=== PATIENT | female | born 1975 | race Caucasian/White ===

== ENCOUNTER 2018-02-02 07:54 | Day surgery (SDC) | payer OTHER ==
[~2018-02-02 07:54] MED LIST: Acetaminophen 500 MG Tab PO ONE; Bupivacaine 0.5%/EPINEPHrine 1:200,000 50 ML MDV ONE; Dexamethasone 4 MG/ML SDV ONE; Glycopyrrolate 0.2 MG/ML 5 ML MDV ONE; Meropenem 500 MG SDV ONE; Neostigmine Methylsulfate 1 MG/ML 5 ML Syringe ONE; Ondansetron 4 MG/2 ML SDV ONE; Propofol 200 MG/20 ML SDV ONE; Rocuronium 50 MG/5 ML Vial ONE; Scopolamine 1.5 MG Transdermal Patch TOP SCH; Succinylcholine 200 MG/10 ML MDV ONE; cefOXitin 2 GM in Sodium Chloride 0.9% 50 ML IV ONE; fentaNYL 250 MCG/5 ML SDV ONE
[2018-02-02] MEDS: Dextrose 5%-Lactated Ringers 1,000 ML IV SCH (08:30)
[2018-02-02] MEDS ORDERED: Naloxone 0.4 MG/ML SDV IVPUSH PRN (08:32)
[2018-02-02] MEDS ORDERED: HYDROmorphone/Normal Saline 15 MG/30 ML PCA IV PRN (08:32)
[2018-02-02] MEDS ORDERED: Naloxone 0.4 MG/ML SDV IV PRN (08:34)
[2018-02-02] MEDS ORDERED: Ketamine 500 MG/5 ML MDV IV SCH (08:45)
[2018-02-02] MEDS ORDERED: Ropivacaine 30 ML, Dexamethasone 8 MG, EPINEPHrine 0.4 MG, Sodium Chloride 0.9% 47.6 ML NERVRT SCH ×4 (08:45)
[2018-02-02] MEDS ORDERED: MVI, Adult with Vitamin K 10 ML, Chromium/Copper/Mang/Selen/Zn 1 ML in Dextrose 5%-Lact... IV ONE ×3 (12:00)
[2018-02-02] MEDS ORDERED: hydrOXYzine HCl 25 MG Tab PO PRN (12:38)
[2018-02-02] MEDS ORDERED: traZODone 50 MG Tab PO PRN (12:38)
[2018-02-02] MEDS ORDERED: Ondansetron 4 MG/2 ML SDV IVPUSH PRN (13:00)
[2018-02-02] MEDS ORDERED: Zinc Sulfate 220 MG Cap PO SCH (16:00)
[2018-02-02] MEDS ORDERED: Pantoprazole 40 MG Vial IVPUSH SCH (16:00)
[2018-02-02] MEDS: cefOXitin 2 GM in Sodium Chloride 0.9% 50 ML IV SCH ×2 (16:18→21:36)
[2018-02-02] MEDS: Vitamin A 10,000 Unit Cap PO ONE ×2 (16:21→16:34)
[2018-02-02] MEDS: ZINC GLUCONATE 50 MG PO SCH (16:23)
[2018-02-02] MEDS: Amylase/Lipase/Protease 12,000 Unit Cap.CR PO SCH ×3 (16:23→16:54)
[2018-02-02] MEDS: Gabapentin 300 MG Cap PO SCH ×2 (16:53→21:32)
[2018-02-02] MEDS: Nicotine 14 MG/24 Hr Patch TRDERM SCH (16:53)
[2018-02-02] MEDS: Acetaminophen/HYDROcodone 325-5 MG Tab PO PRN (18:37)
[2018-02-02] MEDS ORDERED: OXcarbazepine 300 MG Tab PO SCH (21:00)
[2018-02-02] MEDS ORDERED: risperiDONE 1 MG Tab PO SCH (21:00)
[2018-02-03] MEDS: Acetaminophen/HYDROcodone 325-5 MG Tab PO PRN ×3 (00:05→09:53)
[2018-02-03] MEDS: Dextrose 5%-Lactated Ringers 1,000 ML IV SCH (00:08)
[2018-02-03] MEDS: cefOXitin 2 GM in Sodium Chloride 0.9% 50 ML IV SCH ×2 (03:05→09:38)
[2018-02-03] MEDS: Amylase/Lipase/Protease 12,000 Unit Cap.CR PO SCH ×2 (07:54→11:09)
[2018-02-03 07:56] VITALS: BP 92/58
[2018-02-03] MEDS: Nicotine 14 MG/24 Hr Patch TRDERM SCH (08:13)
[2018-02-03] MEDS: Gabapentin 300 MG Cap PO SCH (08:15)
[2018-02-03] MEDS: ZINC GLUCONATE 50 MG PO SCH (08:16)
[2018-02-03] MEDS ORDERED: Vilazodone 20 MG Tab PO SCH (09:00)
[2018-02-03] MEDS ORDERED: Vitamin A 100,000 Units/2 ML SDV IM ONE ×2 (10:00)
--- NOTE | 2018-02-09 13:09 | DISCH ---
FINAL DIAGNOSES: 1. Biliary dyskinesia. 2. Sanguineous small bowel distorted by adhesions. 3. Cystic peritoneal nodule adjacent to gallbladder. 4. Status post duodenal switch. 5. Vitamin A deficiency. 6. Zinc deficiency. OPERATIVE PROCEDURES: Done on 02/02/2018: 1. Diagnostic laparoscopy with lysis of adhesions and. a. Cholecystectomy. b. Repair of area of partial deserosalization of small bowel. c. Removal of cystic peritoneal nodule adjacent to the gallbladder. HOSPITAL COURSE: This is a 42-year-old status post duodenal switch presenting with ongoing postprandial abdominal pain. Workup included a HIDA scan with CCK injection causing quite precise reproduction of the patient's symptoms. The patient underwent a laparoscopic cholecystectomy on 02/02/2018. She was also noted to have an adhesion distorting a segment of her small bowel. This was taken down and was somewhat deserosalized after the lysis of adhesions and was repaired with a laterally placed staple line. There is a small cystic peritoneal nodule adjacent to the gallbladder which was taken out as well for diagnostic purposes. The patient was noted to have a quite low vitamin A level at 15.9 mcg/dL. The lower limit of normal being 32. Her zinc level was also somewhat low at 0.62 mcg/mL with lower limit of normal being 0.66 mcg/dL. Vitamin A deficiency is potentially a serious problems and the patient was given 100,000 units of vitamin A yesterday along with some Creon 100,000 units of vitamin A IM today prior to discharge and started vitamin A 100,000 units today x2 weeks, then 50,000 IU daily x2 weeks, and she also will be started on zinc 100 mg p.o. everyday. The patient had a prescription for Creon which was not covered. We are appealing that decision and if the Creon is covered, this will make the absorption of the fat soluable vitamins somewhat easier, otherwise we may need to intermittently give the patient IM intermittently. We will empirically give the patient some vitamin K IM today as well. Otherwise, she will be continuing her usual medications with Gaylord 5/325 mg 1 to 2 tabs q.4 hours p.r.n. pain, #40, and followup with Justa Watkins at [facility] on 02/10/2018. Of note, the patient after the removal of gallbladder yesterday was able to eat very well overnight with the absence of the pain that she had previously.
--- NOTE | 2018-02-09 13:51 | PN ---
DATE OF SERVICE: 02/02/2018 The patient was noted to have significant vitamin A deficiency as well as zinc in the preoperative area. She will be given 2 doses of 100,000 international units of vitamin A IM, one dose today and one tomorrow. Then, we will also begin vitamin A 100,000 units orally daily and will begin zinc 100 mg p.o. daily to facilitate absorption of vitamins. We will also begin the patient on Creon 24,000 international units t.i.d. before meals. Westley Bruno MD /[id number]
--- NOTE | 2018-02-09 14:00 | OR ---
DATE OF PROCEDURE: 02/02/2018 PREOPERATIVE DIAGNOSIS: Biliary dyskinesia. POSTOPERATIVE DIAGNOSES: 1. Biliary dyskinesia. 2. Segment of small bowel distorted by adhesions. 3. Cystic peritoneal nodule adjacent to gallbladder. OPERATIVE PROCEDURES: Diagnostic laparoscopy with lysis of adhesions and; 1. Cholecystectomy (39817). 2. Repair of area of peritoneal deserosalization of small bowel (28632). 3. Removal of cystic peritoneal nodule adjacent to gallbladder (24554). ANESTHESIA: General. BOWLING ALLEY OPERATOR: Justa Watkins PA-C. INDICATIONS FOR PROCEDURE: This is a 42-year-old status post duodenal switch, presenting with biliary dyskinesia. She was also noted to have significant vitamin A deficiency and has had problems with fairly loose bowel movements and probable associated significant malabsorption related to the duodenal switch. The plan is to proceed with a laparoscopic cholecystectomy. We will also examine the course of the small bowel around the duodenal switch to make sure there is no problem contributing to her GI tract function. Potential risks of the procedure including bleeding, infection, injury to underlying viscera, and possible persistent symptoms following the procedure were all reviewed, and the patient wishes to proceed. DETAILS OF PROCEDURE: The patient was taken to the operating room and placed in a supine position. After general endotracheal anesthesia was induced, she was converted to a lithotomy position, and the abdomen was prepped and draped. In the left lower quadrant, a transverse incision was made, and the peritoneal cavity was entered under direct vision with an Optiview trocar and inflated to 15 mmHg pressure with CO2. Subcostal bilateral transversus abdominis plane blocks were then placed using the standard solution and direct visualization of the needle tip in the correct plane on each side via the laparoscopic vantage point. The point of injection was somewhat lower than average, so to provide some coverage of the lower abdomen related to the initial trocar site positioning. Three additional trocars were then placed across the upper and mid abdomen, and general exploration was undertaken. The patient was noted to have quite a bit of distortion of the course of the small bowel at the point of the jejunojejunostomy. This area was freed up initially of some adhesions. An area of deserosalization was present, and this was then closed off with a NAREN chilel load, being placed in a transverse orientation with satisfactory control of the area of deserosalization. The gallbladder was noted to be fairly densely distended and somewhat edematous, particularly in the area of the cystohepatic triangle. Dissection began on the gallbladder and continued down along the cystohepatic triangle and into the gallbladder neck-cystic duct junction. Once that area was well delineated, as was the adjacent cystic artery, both structures were clipped 3 times proximally and once distally and divided. The gallbladder was dissected off the gallbladder bed using electrocautery and delivered through the epigastric trocar site. It was noted to contain some fine sludge within it. There was also small cystic lesion adjacent to the gallbladder on the peritoneal surface of the liver. This measured around 1 cm and was excised and sent as a separate specimen. At this point, no further problems were noted. The areas of dissection were inspected. No bleeding points were seen. A drain was felt not to be necessary. The trocars were sequentially removed, and the peritoneal cavity deflated. The incision was closed with some 4-0 Vicryl skin stitch. The patient was taken to the recovery room in a satisfactory condition. Physician finance assistant, Justa Watkins, played an essential role in assisting in this case, helping to position the patient, retract structures as needed, as well as suturing and cutting sutures when indicated. Her presence improved patient safety and decreased the operating time. Westley Bruno MD /[id number]
== END 2018-02-03 11:55 | disposition home or self-care (01) ==
LOC: JP.SDS 07:54 → JP.MS 11:49 → JP.SDS 02-03 11:55
PROVIDERS: ATTEND Surgery
DX: K81.1 Chronic cholecystitis (principal); K82.8 Other specified diseases of gallbladder; K66.8 Other specified disorders of peritoneum; K66.0 Peritoneal adhesions (postprocedural) (postinfection); F17.210 Nicotine dependence, cigarettes, uncomplicated; E50.9 Vitamin A deficiency, unspecified; E55.9 Vitamin D deficiency, unspecified; E53.9 Vitamin B deficiency, unspecified; E53.8 Deficiency of other specified B group vitamins; F41.9 Anxiety disorder, unspecified; F32.9 Major depressive disorder, single episode, unspecified; Z98.84 Bariatric surgery status
CPT/HCPCS: 36415; 47562; 58662; 82247; 84075; 85025; 88304; 88305; 94762; A9270; C9113; J0171; J0330; J0694; J1100; J1170; J2405; J2704; J2710; J2795; J3010; J3430; J3490; J7042; J7050; J2185